=== PATIENT | female | born 2000 | race Caucasian/White ===

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

== ENCOUNTER 2023-06-12 15:34 | Emergency (ER) | payer MEDICAID ==
[2023-06-12 15:48] VITALS: BP 121/76; O2SAT 98
[2023-06-12 16:00] LABS: BILIRUBIN,URINE NEGATIVE (NEGATIVE); GLUCOSE, URINE (UA) NEGATIVE (NEGATIVE); KETONES,URINE (UA) NEGATIVE (NEGATIVE); LEUKOCYTE ESTERASE, URINE SMALL (NEGATIVE); NITRITE,URINE NEGATIVE (NEGATIVE); OCCULT BLOOD,URINE SMALL (NEGATIVE); PROTEIN,URINE NEGATIVE (NEGATIVE); UROBILINOGEN,URINE 0.2 (NORMAL) E.U./dL (NORMAL)
[2023-06-12 16:07] LABS: CLARITY,URINE CLEAR (CLEAR); HCG UR QUAL NEGATIVE
[2023-06-12 16:16] LABS: BACTERIA,URINE Rare /HPF (None Seen); RBC,URINE 0-5 /HPF (0-5); SQUAMOUS EPITHELIAL CELL,UR RARE Squamous (<= Few)
--- NOTE | 2023-06-12 17:34 | ED Physician Documentation ---
History of Present Illness - Stated complaint Stated Complaint: - Chief complaint Chief Complaint: Abd Pain - History obtained from History obtained from: Patient - History of Present Illness Timing: Today Pain level max: 3 Pain level now: 2 - Additonal information Additional information: Patient is a 22-year-old female who presents to the emergency department stating that she has had dysuria and urinary frequency intermittently x1 week. She states that today she developed right-sided pelvic pain. LMP was 2 weeks ago. She states she had a kidney infection in the past which felt similar. No nausea or vomiting. No diarrhea. No constipation. No fevers. No chills. Has had a good appetite today. Patient states that she refuses blood work because she has had blood work in the past" passes out". She states she does not want any blood work or needles today. Review of Systems Constitutional: denies: Fever, Chills Throat: denies: Sore throat Cardiac: denies: Chest pain / pressure, Palpitations Respiratory: denies: Cough GI: denies: Abdominal Swelling, Vomiting, Diarrhea, Hematemesis, Bloody / black stool : reports: Dysuria, Frequency, Hesitancy, Hematuria (Noted blood in urine yesterday, none today). 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 HEENT: None Psych: Depression Musculoskeletal: None Derm: None - Past Surgical History Past Surgical History: No - Present Medications Home Medications: Ambulatory Orders Medication Instructions Recorded Confirmed FLUoxetine [PROzac] 10 mg PO DAILY 04/25/18 Cefpodoxime Proxetil [Vantin] 100 mg PO Q12H #14 tablet 06/12/23 - Allergies Allergies/Adverse Reactions: Allergies Allergy/AdvReac Type Severity Reaction Status Date / Time tramadol Allergy Itching Verified 06/12/23 15:38 - Social History Does the pt smoke?: Yes Smoking Status: Current every day smoker Does the pt drink ETOH?: Yes Does the pt have substance abuse?: No - Immunizations Immunizations are current?: Yes PD ED PE NORMAL - Vitals Vital signs reviewed: Yes - General General: Alert and oriented X 3, No acute distress - HEENT HEENT: Moist mucous membranes - Neck Neck: Supple, no meningeal sign - Cardiac Cardiac: RRR - Respiratory Respiratory: No respiratory distress, Clear bilaterally - Abdomen Abdomen: Soft, Non distended, Other (Tender to palpation right low pelvic. No tenderness in McBurney's point. No peritoneal signs. Mild tenderness suprapubic as well.) - Back Back: No CVA TTP, No spinal TTP - Derm Derm: Warm and dry - Extremities Extremities: No edema - Neuro Neuro: Alert and oriented X 3 Results - Vitals Vitals: Vital Signs - 24 hr 06/12/23 15:38 Temperature 36.5 C Heart Rate 78 Respiratory 16 Rate Blood Pressure 121/76 O2 Saturation 98 Oxygen O2 Source Room air - Labs Labs: Laboratory Tests 06/12/23 15:50 Urine Color YELLOW Urine Clarity CLEAR Urine pH 8.0 H Ur Specific [place] 1.010 Urine Protein NEGATIVE Urine Glucose (UA) NEGATIVE Urine Ketones NEGATIVE Urine Occult Blood SMALL H Urine Nitrite NEGATIVE Urine Bilirubin NEGATIVE Urine Urobilinogen 0.2 (NORMAL) Ur Leukocyte Esterase SMALL H Urine RBC 0-5 Urine WBC 6-10 H Ur Squamous Epith Cells RARE Squamous Urine Bacteria Rare Ur Microscopic Review INDICATED Urine Culture Comments INDICATED Urine HCG, Qual NEGATIVE - Rads (name of study) Pelvic ultrasound Relevant Findings:: Final report received, See rad report PD Medical Decision Making - ED course Complexity details: reviewed results, re-evaluated patient, considered differential, d/w patient ED course: No acute findings on pelvic ultrasound. Does not have any CVA tenderness, evidence of sepsis or pyelonephritis. Appears to have a UTI, we will treat with antibiotics and see how she progresses. The patient refuses any blood work, strict return precautions given. If the patient fails to improve in the next 24 to 36 hours, she will return for repeat evaluation. Patient is very well- appearing, nontoxic. No evidence of ovarian torsion, ovarian cyst, appendicitis. No evidence of ureteral stone. Patient counseled regarding signs and symptoms for which I believe and urgent re-evaluation would be necessary. Patient with good understanding of and agreement to plan and is comfortable going home at this time This document was made in part using voice recognition software. While efforts are made to proofread this document, sound alike and grammatical errors may occ ur. Departure - Departure Disposition: 01 Home, Self Care Clinical Impression: Pelvic pain in female UTI (urinary tract infection) Qualifiers: Urinary tract infection type: acute cystitis Hematuria presence: without hematuria Qualified Code(s): N30.00 - Acute cystitis without hematuria Condition: Good Instructions: ED UTI Cystitis Female Follow-Up: your,doctor in 3 days if not better [Other] Prescriptions: Cefpodoxime Proxetil [Vantin] 100 mg PO Q12H #14 tablet Comments: Your prescription was sent to [facility] in [place]. Please follow-up with your doctor for further care. If you are not improving as expected in 2 to 3 days, you should be reevaluated. Your ultrasound does not show any acute abnormalities today. Forms: PCP List Discharge Date/Time: 06/12/23 18:41
[2023-06-12] MEDS ORDERED: CEFPODOXIME PROXETIL 100 MG TABLET PO STA (18:34)
--- NOTE | 2023-06-12 19:08 | Ultrasound Report ---
PROCEDURE: Pelvic w/Doppler Complete INDICATIONS: pelvic pain, R TECHNIQUE: Real-time scanning was performed of the pelvic organs, with image documentation. Doppler interrogati on was performed of the ovaries bilaterally. The patient declined transvaginal scanning. COMPARISON: 10/02/2017 FINDINGS: Study is limited by incomplete bladder prepped. Uterus: Uterus is normal in size at 9 x 5.2 x 4.9 cm. The myometrium is homogeneous. The endometri um measures 3 mm in combined thickness. Ovaries: The right ovary measures 2.3 x 1.8 x 1.2 cm, with a calculated ovarian volume of 2.6 cc. T he left ovary measures 2.8 x 2 x 1.6 cm, with a calculated ovarian volume of 4.7 cc. Appropriate blo od flow to the ovaries with Doppler interrogation, with confirmation of arterial and venous waveforms . Left than 12 follicles can be seen in each ovary. No adnexal masses are seen. No cystic lesions measuring greater than 3 cm. Other: No pathologic free abdominal or pelvic fluid. IMPRESSION: Limited transabdominal only study. Negative for ovarian torsion. No significant abnormality is seen. Note: Concordant preliminary findings given by the regional administrative assistant upon the completion of the examination to Dr. Palafox at 6:10 PM on 06/12/2023. Reviewed by: Johnie Sprague MD on 06/12/2023 6:07 PM MELISSA Approved by: Johnie Sprague MD on 06/12/2023 6:07 PM MELISSA Station ID: [id number]
== END 2023-06-12 18:41 | disposition home or self-care (01) ==
LOC: ED 15:34
DX: N30.00 Acute cystitis without hematuria (principal); F17.200 Nicotine dependence, unspecified, uncomplicated
CPT/HCPCS: 76856; 81001; 81025; 87086; 93975; 99283; 99284; A9270; 80053; 81003; 83690; 85025

== ENCOUNTER 2023-10-28 20:46 | Emergency (ER) | payer MEDICAID ==
[2023-10-28 21:13] LABS: BILIRUBIN,URINE NEGATIVE (NEGATIVE); GLUCOSE, URINE (UA) NEGATIVE (NEGATIVE); KETONES,URINE (UA) NEGATIVE (NEGATIVE); LEUKOCYTE ESTERASE, URINE NEGATIVE (NEGATIVE); NITRITE,URINE NEGATIVE (NEGATIVE); OCCULT BLOOD,URINE NEGATIVE (NEGATIVE); PH,URINE 6.5 PH (5.0-7.5); PROTEIN,URINE NEGATIVE (NEGATIVE); UROBILINOGEN,URINE 0.2 (NORMAL) E.U./dL (NORMAL)
[2023-10-28 21:20] LABS: CLARITY,URINE CLEAR (CLEAR)
[2023-10-28 21:21] LABS: HCG UR QUAL NEGATIVE
[2023-10-28 21:24] LABS: BASOPHILS # (AUTO) 0.1 10^3/uL (0.0-0.1); BASOPHILS % (AUTO) 0.4 %; EOSINOPHILS % (AUTO) 0.2 %; HCT - HEMATOCRIT 41.7 % (37.0-47.0); HGB - HEMOGLOBIN 13.9 g/dL (12.0-16.0); LYMPHOCYTES # (AUTO) 1.8 10^3/uL (1.5-3.5); LYMPHOCYTES % (AUTO) 13.6 %; MEAN CORPUSCULAR HEMOGLOBIN 30.5 pg (27.0-31.0); MEAN CORPUSCULAR HGB CONC 33.3 g/dL (32.0-36.0); MEAN CORPUSCULAR VOLUME 91.4 fL (81.0-99.0); MEAN PLATELET VOLUME 10.4 fL (7.9-10.8); MONOCYTES # (AUTO) 0.8 10^3/uL (0.0-1.0); MONOCYTES % (AUTO) 6.2 %; NEUTROPHILS # (AUTO) 10.3 10^3/uL (1.5-6.6); NEUTROPHILS % (AUTO) 79.4 %; PLT - PLATELET COUNT 312 10^3/uL (130-450); RED BLOOD COUNT 4.56 10^6/uL (4.20-5.40)
[2023-10-28 21:38] LABS: ALBUMIN 4.8 g/dL (3.2-5.5); ALBUMIN/GLOBULIN RATIO 1.7 (1.0-2.2); ALKALINE PHOSPHATASE 57 IU/L (42-121); ALT ALANINE AMINOTRANSFERASE 8 IU/L (10-60); AST ASPARTATE AMINOTRANSFERASE 12 IU/L (10-42); BILIRUBIN,TOTAL 1.1 mg/dL (0.2-1.0); BUN - BLOOD UREA NITROGEN 6 mg/dL (6-20); CALCIUM 9.8 mg/dL (8.5-10.3); CARBON DIOXIDE - CO2 27 mmol/L (21-32); CHLORIDE 102 mmol/L (101-111); CREATININE 0.6 mg/dL (0.6-1.3); GFR - MDRD 124 (>89); GLUCOSE 99 mg/dL (74-104); POTASSIUM 3.7 mmol/L (3.5-4.5); SODIUM 136 mmol/L (135-145); TOTAL PROTEIN 7.6 g/dL (6.4-8.9)
[2023-10-28 21:40] LABS: LIPASE < 10 U/L (11-82)
[2023-10-28 21:59] LABS: B. PARAPERTUSSIS- RESP PCR PAN NOT DETECTED; B. PERTUSSIS- RESP PCR PANEL NOT DETECTED; C. PNEUMONIAE- RESP PCR PANEL NOT DETECTED; CORONAVIRUS 229E-RESP PCR NOT DETECTED; CORONAVIRUS HKU1-RESP PCR NOT DETECTED; CORONAVIRUS NL63-RESP PCR NOT DETECTED; CORONAVIRUS OC43-RESP PCR NOT DETECTED; HUMAN METAPNEUMOVIRUS NOT DETECTED; INFLUENZA A- RESP PCR PANEL NOT DETECTED; INFLUENZA B - RESP PCR PANEL NOT DETECTED; M. PNEUMONIAE- RESP PCR PANEL NOT DETECTED; PARAINFLUENZA VIRUS 1 NOT DETECTED; PARAINFLUENZA VIRUS 2 NOT DETECTED; PARAINFLUENZA VIRUS 3 NOT DETECTED; PARAINFLUENZA VIRUS 4 NOT DETECTED; RHINOVIRUS/ENTEROVIRUS NOT DETECTED; RSV- RESP PCR PANEL NOT DETECTED; SARS-CoV-2 -RESP PCR PANEL NOT DETECTED
--- NOTE | 2023-10-29 01:53 | ED Physician Documentation ---
History of Present Illness - Stated complaint Stated Complaint: BLURRY VISION,BODY SPASMS - Chief complaint Chief Complaint: Neuro - History obtained from History obtained from: Patient - Additonal information Additional information: HPI from patient. Patient says she has been having generalized abdominal cramping for the past 2 to 3 days which is worse with p.o. intake. Her chief complaint is sudden onset of severe right pelvic pain approximately 1 to 2 hours prior to arrival, onset while at home and at rest. The pain is distinctly worse with movement, palpation, and position. She denies history of similar pain. She has been experiencing nausea with this pain but no vomiting. Review of Systems Constitutional: denies: Fever Cardiac: reports: Reviewed and negative Respiratory: reports: Reviewed and negative GI: reports: Abdominal Pain, Nausea. denies: Abdominal Swelling, Vomiting, Constipation, Diarrhea : denies: Dysuria, Frequency PD PAST MEDICAL HISTORY - Past Medical History Past Medical History: No Cardiovascular: None Respiratory: None Endocrine/Autoimmune: None GI: None FABRIC INSPECTOR: None : None HEENT: None Psych: Depression Musculoskeletal: None Derm: None - Past Surgical History Past Surgical History: No - Present Medications Home Medications: Ambulatory Orders Medication Instructions Recorded Confirmed No Known Home Medications 10/29/23 10/29/23 - Allergies Allergies/Adverse Reactions: Allergies Allergy/AdvReac Type Severity Reaction Status Date / Time tramadol Allergy Itching Verified 10/28/23 20:53 - Social History Does the pt smoke?: Yes Smoking Status: Current every day smoker Does the pt drink ETOH?: Yes Does the pt have substance abuse?: No - Immunizations Immunizations are current?: Yes PD ED PE NORMAL - General General: Alert and oriented X 3, No acute distress, Well developed/nourished - Abdomen Abdomen: Soft, Non distended PD ED PE EXPANDED - Abdomen Abdomen: Tender to palpation (greatest in RLQ but also across anterior pelvis and periumbilicus). No: Rebound, Guarding Results - Vitals Vitals: Oxygen O2 Source Room air - Labs Labs: Laboratory Tests 10/28/23 10/28/23 10/28/23 20:58 21:08 21:19 WBC 13.0 H RBC 4.56 Hgb 13.9 Hct 41.7 MCV 91.4 MCH 30.5 MCHC 33.3 RDW 12.0 Plt Count 312 MPV 10.4 Neut # (Auto) 10.3 H Lymph # (Auto) 1.8 [place] # (Auto) 0.8 Eos # (Auto) 0.0 Baso # (Auto) 0.1 Absolute Nucleated RBC 0.00 Nucleated RBC % 0.0 Sodium Potassium Chloride Carbon Dioxide Anion Gap BUN Creatinine Estimated GFR (MDRD) Glucose Calcium Total Bilirubin AST ALT Alkaline Phosphatase Total Protein Albumin Globulin Albumin/Globulin Ratio Lipase Urine Color YELLOW Urine Clarity CLEAR Urine pH 6.5 Ur Specific [place] 1.010 Urine Protein NEGATIVE Urine Glucose (UA) NEGATIVE Urine Ketones NEGATIVE Urine Occult Blood NEGATIVE Urine Nitrite NEGATIVE Urine Bilirubin NEGATIVE Urine Urobilinogen 0.2 (NORMAL) Ur Leukocyte Esterase NEGATIVE Ur Microscopic Review NOT INDICATED Urine Culture Comments NOT INDICATED Urine HCG, Qual NEGATIVE Nasal Adenovirus (PCR) NOT DETECTED Nasal B. parapertussis DNA (PCR) NOT DETECTED Nasal Coronavir 229E PCR NOT DETECTED Nasal Coronavir HKU1 PCR NOT DETECTED Nasal Coronavir NL63 PCR NOT DETECTED Nasal Coronavir OC43 PCR NOT DETECTED Nasal Enterovir/Rhinovir PCR NOT DETECTED Nasal Influenza B PCR NOT DETECTED Nasal Influenza A PCR NOT DETECTED Nasal Parainfluen 1 PCR NOT DETECTED Nasal Parainfluen 2 PCR NOT DETECTED Nasal Parainfluen 3 PCR NOT DETECTED Nasal Parainfluen 4 PCR NOT DETECTED Nasal RSV (PCR) NOT DETECTED Nasal B.pertussis DNA PCR NOT DETECTED Nasal C.pneumoniae (PCR) NOT DETECTED [place] Human Metapneumo PCR NOT DETECTED Nasal M.pneumoniae (PCR) NOT DETECTED Nasal SARS-CoV-2 (PCR) NOT DETECTED 10/28/23 21:19 WBC RBC Hgb Hct MCV MCH MCHC RDW Plt Count MPV Neut # (Auto) Lymph # (Auto) [place] # (Auto) Eos # (Auto) Baso # (Auto) Absolute Nucleated RBC Nucleated RBC % Sodium 136 Potassium 3.7 Chloride 102 Carbon Dioxide 27 Anion Gap 7.0 BUN 6 Creatinine 0.6 Estimated GFR (MDRD) 124 Glucose 99 Calcium 9.8 Total Bilirubin 1.1 H AST 12 ALT 8 L Alkaline Phosphatase 57 Total Protein 7.6 Albumin 4.8 Globulin 2.8 Albumin/Globulin Ratio 1.7 Lipase < 10 L Urine Color Urine Clarity Urine pH Ur Specific [place] Urine Protein Urine Glucose (UA) Urine Ketones Urine Occult Blood Urine Nitrite Urine Bilirubin Urine Urobilinogen Ur Leukocyte Esterase Ur Microscopic Review Urine Culture Comments Urine HCG, Qual Nasal Adenovirus (PCR) Nasal B. parapertussis DNA (PCR) Nasal Coronavir 229E PCR Nasal Coronavir HKU1 PCR Nasal Coronavir NL63 PCR Nasal Coronavir OC43 PCR Nasal Enterovir/Rhinovir PCR Nasal Influenza B PCR Nasal Influenza A PCR Nasal Parainfluen 1 PCR Nasal Parainfluen 2 PCR Nasal Parainfluen 3 PCR Nasal Parainfluen 4 PCR Nasal RSV (PCR) Nasal B.pertussis DNA PCR Nasal C.pneumoniae (PCR) [place] Human Metapneumo PCR Nasal M.pneumoniae (PCR) Nasal SARS-CoV-2 (PCR) - Rads (name of study) CT A/P with IV contrast Relevant Findings:: Prelim report reviewed, See rad report PD Medical Decision Making - ED course Complexity details: reviewed results, re-evaluated patient, considered differential, d/w patient ED course: Mild leukocytosis on CBC (WBC 13). Unremarkable ER abdominal panel. Urinalysis is normal, and urine hCG is negative. A respiratory PCR panel is also negative for the viruses tested. Patient expressed extreme apprehension about having an IV placed when I discussed with her my recommendation for IV contrast CAT scan (I explained that my chief concern was appendicitis, given the significant right lower quadrant tenderness on exam). She asks for medication to help with her anxiety and thus she is given 2 mg p.o. lorazepam. Once this had time to take effect, she was agreeable to the IV the CT subsequently performed demonstrates normal appendix but complex left ovarian cyst with trace free fluid in cul-de-sac. I discussed these results with the patient on reevaluation. At that point, she is asleep, awakens to voice. She is in NAD. At the time of that discussion, ultrasound was due to be on-call within an hour, and I recommended to the patient that she stay in the emergency department until an ultrasound can be undertaken. This will hopefully better characterize this complex cyst, but from an emergent perspective, the goal is to ensure good blood flow to both ovaries. US reveals good flow bilaterally to ovaries; no evidence of torsion. Possible right hemorrhagic cyst. Results d/w patient, return precautions reviewed. Departure - Departure Disposition: 01 Home, Self Care Clinical Impression: Ovarian cyst Qualifiers: Laterality: bilateral Qualified Code(s): N83.201 - Unspecified ovarian cyst, right side Condition: Good Instructions: ED Cyst Ovarian Comments: The ultrasound shows you have ovarian cysts on both sides, right and left. There is some appearance on the ultrasound to suggest that the right-sided ovarian cyst might have ruptured and caused a small amount of bleeding into the pelvic area. This is called a hemorrhagic cyst, and while it often causes discomfort, it is very unusual to cause any serious medical problems. Typically, the blood reabsorbs, and the cyst resolves without any specific intervention. As we discussed, even if you are feeling well, I recommend that you contact your primary care provider when the office is next open to arrange for the next available appointment for reevaluation. You might need repeat ultrasound to ensure resolution of the ovarian cysts. Forms: PCP List Discharge Date/Time: 10/29/23 09:50
[2023-10-29] MEDS ORDERED: LORazepam 0.5 MG TABLET PO STA (02:20)
[2023-10-29] MEDS ORDERED: iohexoL-300 100 ML VIAL IVP ONE (04:03)
[2023-10-29 07:35] VITALS: O2SAT 97
--- NOTE | 2023-10-29 09:38 | CT Report ---
PROCEDURE: Abdomen/Pelvis W INDICATIONS: RLQ pain, tenderness CONTRAST: 100 ML OMNI 300 TECHNIQUE: After the administration of intravenous contrast, a CT scan of the abdomen and pelvis was performed. Images were recorded and evaluated at appropriate window settings. Reformats: coronal and sagittal. F or radiation dose reduction, the following was used: automated exposure control, adjustment of mA and /or kV according to patient size. COMPARISON: Pelvic ultrasound 06/12/2023 FINDINGS: Image quality: Diagnostic Lower chest: No basal effusion or dense consolidation. Liver: No suspicious mass. Probable focal fat adjacent to falciform ligament. Gallbladder and biliary system: Nondilated, unremarkable Pancreas: No ductal dilation Spleen: Nonenlarged Adrenals: No discrete nodule Kidneys: No suspicious mass or hydronephrosis. Vessels and lymph nodes: Main portal vein is patent. There is no abdominal aortic aneurysm. No pathol ogic lymph nodes by size criteria. Bowel and peritoneum: No evidence of small bowel obstruction. No intra-abdominal drainable abscess. M ild to moderate pelvic free fluid. At least some of this is probably physiologic. The cecum is locate d in the deep pelvis are nondilated appendix is seen protruding upward. However, the base at the ceca l attachment is not well seen. Body wall: Unremarkable Pelvis: Reproductive organs are better evaluated on ultrasound, to be dictated separately. The bladde r is unremarkable. Bones: No acute or suspicious osseous finding. IMPRESSION: The appendix is partially seen. The mid and distal portion are nondilated. The base is not well seen. The cecum is in the deep pelvis. Consider clinical follow-up and follow-up imaging if there are new or worsening symptoms. Pelvic ultrasound findings are separately dictated. No significant discrepancy from prelim report. Other findings as above. Reviewed by: Ori Alejandra MD on 10/29/2023 9:37 AM [facility] Approved by: Ori Alejandra MD on 10/29/2023 9:37 AM PST Station ID: [id number]
--- NOTE | 2023-10-29 09:42 | Ultrasound Report ---
PROCEDURE: Pelvic w/Doppler Complete INDICATIONS: pelvic pain, R TECHNIQUE: Transabdominal images were obtained of the pelvis. Endovaginal exam was declined. COMPARISON: Same-day CT FINDINGS: Uterus measures 7 x 2.8 x 3.4 cm. Heterogeneous echotexture. Endometrium measures 4 mm. Corresponding to the enlarged ovarian structures on CT, there is a possible complex cyst, most common ly hemorrhagic cyst measuring 3.2 x 3.1 cm in the right ovary. Overall ovarian volume is 43 cc. Suspected cyst in the left ovary measures 3.4 x 2.8 cm. Overall ovarian volume is 23 cc. Color Doppler flows are seen bilaterally. There is also left hydrosalpinx. IMPRESSION: Limited pelvic ultrasound due to transabdominal only technique. There is suspected left hydrosalpinx. Complex right cyst is probably a hemorrhagic cyst or corpus luteum. More simple appearing left ovari an cyst also present. No evidence of torsion currently. However both ovaries are mild to moderately e nlarged. Reviewed by: Ori Alejandra MD on 10/29/2023 9:41 AM PST Approved by: Ori Alejandra MD on 10/29/2023 9:41 AM PST Station ID: [id number]
[2023-10-29 09:46] VITALS: BP 94/59
== END 2023-10-29 09:50 | disposition home or self-care (01) ==
LOC: ED 20:46
DX: N83.201 Unspecified ovarian cyst, right side (principal); F17.200 Nicotine dependence, unspecified, uncomplicated
CPT/HCPCS: 36415; 74177; 76856; 80053; 81003; 81025; 83690; 85025; 87633; 93975; 99283; 99284; A9270; Q9967; 81001; 87086